=== PATIENT | female | born 1950 | race Asian ===

== ENCOUNTER 2025-06-03 08:54 | Outpatient (CLI) | payer OTHER ==
[2025-06-03 09:19] LABS: Estimated GFR - POC 91.0
== END 2025-06-03 08:55 | disposition home or self-care (01) ==
LOC: CT 08:54
PROVIDERS: ATTEND Family Medicine
DX: E04.1 Nontoxic single thyroid nodule (principal); R91.1 Solitary pulmonary nodule
CPT/HCPCS: 71270; 76536; 82565

== ENCOUNTER 2025-06-10 14:03 | Outpatient (CLI) | payer OTHER | END 2025-06-10 14:04 | disposition home or self-care (01) | LOC: BICMAMMO 14:03 | PROVIDERS: ATTEND Family Medicine | DX: Z12.31 Encounter for screening mammogram for malignant neoplasm of breast (principal); Z78.0 Asymptomatic menopausal state; M81.0 Age-related osteoporosis without current pathological fracture | CPT/HCPCS: 77063; 77067; 77080 ==